=== PATIENT | female | born 1995 | race Two or more races ===

== ENCOUNTER 2020-07-10 06:10 | Day surgery (SDC) | payer OTHER ==
[~2020-07-10 06:10] MED LIST: SIMVASTATIN PO
== END 2020-07-10 18:00 | disposition home or self-care (01) ==
LOC: CIR.AMB 06:10 → EDBD 09:30 → CIR.AMB 09:30
PROVIDERS: ATTEND Obstetrics & Gynecology
DX: N84.0 Polyp of corpus uteri (principal); Z20.828 Contact with and (suspected) exposure to other viral communicable diseases